=== PATIENT | male | born 1935 | race Caucasian/White ===

== ENCOUNTER → 2019-09-19 17:22 | Outpatient (BNVA) | payer MEDICARE, OTHER, SELFPAY | PROVIDERS: Family Provider Nurse Practitioner Family; PCP Urology; Visit Provider Family Medicine | DX: I50.9 Heart failure, unspecified (principal); I48.91 Unspecified atrial fibrillation; G47.00 Insomnia, unspecified; F03.90 Unspecified dementia, unspecified severity, without behavioral disturbance, psychotic disturbance, mood disturbance, and anxiety; I10 Essential (primary) hypertension | CPT/HCPCS: 80048; 85610 ==

== ENCOUNTER → 2019-10-20 13:56 | Outpatient (BNVA) | payer MEDICARE, OTHER, SELFPAY | PROVIDERS: Family Provider Nurse Practitioner Family; PCP Urology; Referring Provider Family Medicine; Visit Provider Family Medicine | DX: Z79.01 Long term (current) use of anticoagulants (principal) | CPT/HCPCS: 85610 ==

== ENCOUNTER → 2019-12-22 14:29 | Outpatient (BNVA) | payer MEDICARE, OTHER, SELFPAY | PROVIDERS: Family Provider Nurse Practitioner Family; PCP Urology; Referring Provider Family Medicine; Visit Provider Family Medicine | DX: Z79.01 Long term (current) use of anticoagulants (principal) | CPT/HCPCS: 36416; 85610 ==

== ENCOUNTER → 2020-01-27 14:49 | Outpatient (BNVA) | payer MEDICARE, OTHER, SELFPAY | PROVIDERS: Family Provider Nurse Practitioner Family; PCP Urology; Referring Provider Family Medicine; Visit Provider Family Medicine | DX: G30.1 Alzheimer's disease with late onset (principal); F02.81 Dementia in other diseases classified elsewhere, unspecified severity, with behavioral disturbance; Z11.59 Encounter for screening for other viral diseases | CPT/HCPCS: 87400; 87635 ==

== ENCOUNTER → 2020-01-29 13:17 | Outpatient (BNVA) | payer MEDICARE, OTHER, SELFPAY | PROVIDERS: Family Provider Nurse Practitioner Family; PCP Urology; Referring Provider Family Medicine; Visit Provider Family Medicine | DX: G30.1 Alzheimer's disease with late onset (principal); F02.81 Dementia in other diseases classified elsewhere, unspecified severity, with behavioral disturbance; Z79.01 Long term (current) use of anticoagulants; Z11.59 Encounter for screening for other viral diseases | CPT/HCPCS: 85610 ==